=== PATIENT | male | born 1940 | race Hispanic/Latino ===

== ENCOUNTER → 2024-03-25 | Outpatient (CLI) | payer OTHER ==
--- NOTE | 2024-03-25 16:16 | HMCIMG ---
US RENAL SONOGRAM REASON: GROSS HEMATURIA COMPARISON: None TECHNIQUE: Renal and bladder sonogram was performed. FINDINGS: Right kidney is 8.6 x 4.4 x 3.9 cm, left is 8.7 x 4.6 x 3.8 cm. Echogenicity appears normal. Cortex is mildly thinned. There is no mass, stone or hydronephrosis. There is a focal mass present posteriorly and to the right of midline in the urinary bladder. This measures 7 x 1.7 x 1.9 cm. This could represent a bladder wall neoplasm. Urinary bladder appears otherwise unremarkable. IMPRESSION: 1. Mass in the wall of the bladder, 1.7 x 1.9 cm size, 7 mm thickness, present posteriorly and to the right in the bladder wall. 2. Mild bilateral renal cortical thinning, the kidneys appear otherwise unremarkable.
== END | disposition home or self-care (01) ==
LOC: RAH 14:28
PROVIDERS: ATTEND Urology
DX: N32.89 Other specified disorders of bladder (principal); N28.89 Other specified disorders of kidney and ureter; R31.0 Gross hematuria
CPT/HCPCS: 76770